=== PATIENT | male | born 1945 | race Caucasian/White ===

== ENCOUNTER 2020-07-25 17:45 | Inpatient (IN) | payer MEDICARE, BC ==
[~2020-07-25] VITALS: Ht 175.3 cm; Wt 115.7 kg
[~2020-07-25 17:45] MED LIST: ARTIFICIAL TEAR15 M2 OP; ASPIRIN CHEWABL81 MG PO; BENADRYL 50MG C50 MG PO; DULOXETINE HCL20 MG PO; ELIQUIS5 MG PO; FLONASE ALLER15.8 ML; GLIPIZIDE5 MG PO; GLUCOTROL5 MG PO; HYDRALAZINE HCL25 MG PO; IBUPROFEN600 MG PO; LOPRESSOR50 MG PO; LORATADINE10 MG PO; LOSARTAN POTASS25 MG PO; MULTAQ 400 MG400 MG PO; NORVASC10 MG PO; SEROQUEL100 MG PO
[2020-07-25 19:13] LABS: HEMOGLOBIN 15.9 gm/dl (14.0-17.5); RED BLOOD COUNT 5.72 M/UL (4.20-5.50); WHITE BLOOD COUNT 13.8 K/UL (4.5-11.0)
[2020-07-25 19:29] LABS: BUN/CREATININE RATIO 16 (0-10)
[2020-07-26] MEDS ORDERED: CYMBALTA 20 MG20 MG PO (03:07)
[2020-07-26] MEDS ORDERED: FERROUS SULFAT325 MG PO (03:08)
[2020-07-26] MEDS ORDERED: ASPIRIN81 MG PO (03:09)
[2020-07-26 09:18] LABS: WHITE BLOOD COUNT 11.1 K/UL (4.5-11.0)
[2020-07-26 09:19] LABS: HEMOGLOBIN 13.7 gm/dl (14.0-17.5); RED BLOOD COUNT 5.05 M/UL (4.20-5.50)
[2020-07-26] MEDS ORDERED: GABAPENTIN300 MG PO (16:47)
[2020-07-26] MEDS ORDERED: SPIRIVA RESPIMAT4 GM INH (16:48)
[2020-07-26] MEDS ORDERED: PROAIR HFA8.5 GM INH (16:49)
== END 2020-07-26 17:20 | disposition home or self-care (01) | DRG 389 ==
LOC: ER1 17:45 → CDU 21:21 → PROG CARE 21:21 → MED SURG 4 21:21 → PROG CARE 07-26 01:26 → MED SURG 4 07-26 09:31
PROVIDERS: Physician Assistant Medical; Surgery; ADMIT Internal Medicine
DX: K56.609 Unspecified intestinal obstruction, unspecified as to partial versus complete obstruction (principal); E87.2 Acidosis; I48.20 Chronic atrial fibrillation, unspecified; K42.9 Umbilical hernia without obstruction or gangrene; I10 Essential (primary) hypertension; E11.40 Type 2 diabetes mellitus with diabetic neuropathy, unspecified; J44.9 Chronic obstructive pulmonary disease, unspecified; G47.30 Sleep apnea, unspecified; Z20.822 Contact with and (suspected) exposure to COVID-19; Z88.8 Allergy status to other drugs, medicaments and biological substances; E66.01 Morbid (severe) obesity due to excess calories; Z79.01 Long term (current) use of anticoagulants; Z85.118 Personal history of other malignant neoplasm of bronchus and lung; Z98.890 Other specified postprocedural states; Z68.37 Body mass index [BMI] 37.0-37.9, adult; Z82.49 Family history of ischemic heart disease and other diseases of the circulatory system; Z87.891 Personal history of nicotine dependence
CPT/HCPCS: 36415; 51702; 74018; 80053; 81001; 82272; 82962; 83605; 83735; 84100; 85025; 87040; 93005; 96372; 96374; 96375; 99285; C9113; J1170; J2270; J2405; J3411; J3475; J7030; Q9967; U0002